=== PATIENT | female | born 1970 | race Two or more races ===

== ENCOUNTER 2023-03-17 11:54 | Inpatient (IN) | payer OTHER ==
[~2023-03-17] VITALS: Ht 167.6 cm; Wt 77.6 kg
[2023-03-17 14:14] LABS: HEMATOCRIT 30.2 % (36.0-45.00); MEAN CELL VOLUME 85.1 fL (80.00-100.00); MEAN CORPUSCULAR HEMOGLOBIN 28.3 pg (27.00-32.0); MEAN CORPUSCULAR HGB CONC 33.3 g/dl (32.0-36.0); PLATELET COUNT 464 K/uL (150-450); RED BLOOD COUNT 3.54 M/uL (4.00-6.00); RED CELL DISTRIBUTION WIDTH 14.3 % (11.5-14.5)
[2023-03-17 14:29] LABS: ALBUMIN 1.7 gm/dL (3.4-5.0); BILIRUBIN TOTAL 0.51 mg/dL (0.3-1.2); CALCIUM 8.4 mg/dL (8.5-10.1); CREATININE SERUM 0.89 mg/dL (0.55-1.02); GFR 67.13; GLOBULINA 5.3 G/DL (2.4-3.5); POTASSIUM 3.47 mEq/L (3.5-5.1)
[2023-03-17 14:29] LABS: ABG PH 7.473 (7.35-7.45); ABG PO2 90.3 mmHg (80-100); ABG pCO2 27.6 mmHg (35-45); BASE EXCESS -2.3 mmol/l; BICARBONATE 19.8 mmol/l (23-25); SaO2 97.5 %; Tco2 20.6 mmol/l
[2023-03-17 14:30] LABS: allen test SATISFACTORY; o2 21 %; puncture site RADIAL RIGHT
[2023-03-17 15:23] LABS: INR 1.21; PARTIAL THROMBOPLASTIN TIME 31.6 SECONDS (22.0-34.0); PROTHROMBIN TIME 12.5 SECONDS (9.0-11.5)
[2023-03-18 08:05] LABS: HEMATOCRIT 27.8 % (36.0-45.00); HEMOGLOBIN 9.2 g/dL (12.0-15.00); MEAN CELL VOLUME 87.1 fL (80.00-100.00); MEAN CORPUSCULAR HEMOGLOBIN 28.8 pg (27.00-32.0); PLATELET COUNT 384 K/uL (150-450); RED BLOOD COUNT 3.19 M/uL (4.00-6.00); RED CELL DISTRIBUTION WIDTH 14.5 % (11.5-14.5)
[2023-03-18 08:51] LABS: ALBUMIN 1.4 gm/dL (3.4-5.0); BILIRUBIN TOTAL 0.63 mg/dL (0.3-1.2); CALCIUM 7.6 mg/dL (8.5-10.1); CREATININE SERUM 0.89 mg/dL (0.55-1.02); GFR 67.13; GLOBULINA 3.9 G/DL (2.4-3.5); POTASSIUM 4.42 mEq/L (3.5-5.1); TOTAL PROTEIN 5.3 gm/dL (6.4-8.2)
[2023-03-18 17:59] LABS: URINE APPEARANCE Cloudy; URINE BILIRRUBIN Negative (NEGATIVE); URINE BLOOD Trace; URINE COLOR Yellow; URINE GLUCOSE Negative (NEGATIVE); URINE LEUKOCYTE Trace; URINE NITRATE Negative; URINE PROTEIN 30 (NEGATIVE)
[2023-03-18 18:00] LABS: URINE BACTERIA 284.7 uL (0.0-1933); URINE WBC 21.9 uL (0.0-23.2)
[2023-03-20 06:45] LABS: HEMATOCRIT 29.9 % (36.0-45.00); MEAN CELL VOLUME 86.3 fL (80.00-100.00); MEAN CORPUSCULAR HEMOGLOBIN 28.9 pg (27.00-32.0); MEAN CORPUSCULAR HGB CONC 33.5 g/dl (32.0-36.0); PLATELET COUNT 507 K/uL (150-450); RED BLOOD COUNT 3.47 M/uL (4.00-6.00); RED CELL DISTRIBUTION WIDTH 14.3 % (11.5-14.5)
[2023-03-20 07:00] LABS: ERYTHROCYTE SEDIMENTATION RATE > 130 mm/hr
[2023-03-20 07:12] LABS: ALBUMIN 1.6 gm/dL (3.4-5.0); BILIRUBIN TOTAL 0.36 mg/dL (0.3-1.2); CREATININE SERUM 0.8 mg/dL (0.55-1.02); GFR 75.92; GLOBULINA 4.7 G/DL (2.4-3.5); POTASSIUM 4.13 mEq/L (3.5-5.1); TOTAL PROTEIN 6.3 gm/dL (6.4-8.2)
[2023-03-20 07:13] LABS: C-REACTIVE PROTEIN 26.6 MG/DL (0.00-0.29)
[2023-03-21 11:13] LABS: ob NEGATIVE (NEGATIVE)
[2023-03-21 12:43] LABS: FECAL LEUKOCYTES NEGATIVE (NEGATIVE)
[2023-03-23 08:45] LABS: HEMATOCRIT 28.7 % (36.0-45.00); MEAN CELL VOLUME 86.9 fL (80.00-100.00); MEAN CORPUSCULAR HGB CONC 33.1 g/dl (32.0-36.0); PLATELET COUNT 495 K/uL (150-450); RED CELL DISTRIBUTION WIDTH 14.1 % (11.5-14.5)
[2023-03-23 09:00] LABS: ALBUMIN 1.7 gm/dL (3.4-5.0); BILIRUBIN TOTAL 0.38 mg/dL (0.3-1.2); GFR 58.69; GLOBULINA 3.3 G/DL (2.4-3.5); POTASSIUM 3.82 mEq/L (3.5-5.1)
[2023-03-23 09:08] LABS: HEMOGLOBIN 9.5 g/dL (12.0-15.00); MEAN CORPUSCULAR HEMOGLOBIN 28.7 pg (27.00-32.0)
[2023-03-23 09:16] LABS: C-REACTIVE PROTEIN 3.64 MG/DL (0.00-0.29)
[2023-03-23 10:43] LABS: ERYTHROCYTE SEDIMENTATION RATE 49 mm/hr
[2023-03-24 07:42] LABS: HEMATOCRIT 31.3 % (36.0-45.00); HEMOGLOBIN 10.3 g/dL (12.0-15.00); MEAN CELL VOLUME 87.2 fL (80.00-100.00); MEAN CORPUSCULAR HEMOGLOBIN 28.6 pg (27.00-32.0); MEAN CORPUSCULAR HGB CONC 32.9 g/dl (32.0-36.0); PLATELET COUNT 578 K/uL (150-450); RED BLOOD COUNT 3.59 M/uL (4.00-6.00); RED CELL DISTRIBUTION WIDTH 14.6 % (11.5-14.5)
[2023-03-24 08:10] LABS: CALCIUM 8.1 mg/dL (8.5-10.1); CREATININE SERUM 0.81 mg/dL (0.55-1.02); GFR 74.84; MAGNESIUM 1.9 mg/dL (1.8-2.4); PHOSPHOROUS 3.6 mg/dL (2.5-4.9); POTASSIUM 4.36 mEq/L (3.5-5.1)
[2023-03-27 07:31] LABS: HEMATOCRIT 26.4 % (36.0-45.00); MEAN CELL VOLUME 88.2 fL (80.00-100.00); MEAN CORPUSCULAR HGB CONC 31.5 g/dl (32.0-36.0); PLATELET COUNT 477 K/uL (150-450); RED BLOOD COUNT 2.99 M/uL (4.00-6.00); RED CELL DISTRIBUTION WIDTH 14.4 % (11.5-14.5)
[2023-03-27 07:34] LABS: MEAN CORPUSCULAR HEMOGLOBIN 27.7 pg (27.00-32.0)
[2023-03-27 07:35] LABS: HEMOGLOBIN 8.3 g/dL (12.0-15.00)
[2023-03-27 07:47] LABS: ERYTHROCYTE SEDIMENTATION RATE 27 mm/hr
[2023-03-27 08:15] LABS: ALBUMIN 1.8 gm/dL (3.4-5.0); BILIRUBIN TOTAL 0.24 mg/dL (0.3-1.2); CALCIUM 7.7 mg/dL (8.5-10.1); CREATININE SERUM 0.74 mg/dL (0.55-1.02); GFR 83.07; POTASSIUM 3.37 mEq/L (3.5-5.1); TOTAL PROTEIN 4.8 gm/dL (6.4-8.2)
[2023-03-27 08:25] LABS: C-REACTIVE PROTEIN 2.26 MG/DL (0.00-0.29)
[2023-03-27 15:27] LABS: HEMATOCRIT 26.5 % (36.0-45.00); HEMOGLOBIN 8.7 g/dL (12.0-15.00); MEAN CELL VOLUME 87.3 fL (80.00-100.00); MEAN CORPUSCULAR HEMOGLOBIN 28.7 pg (27.00-32.0); MEAN CORPUSCULAR HGB CONC 32.8 g/dl (32.0-36.0); PLATELET COUNT 480 K/uL (150-450); RED BLOOD COUNT 3.03 M/uL (4.00-6.00); RED CELL DISTRIBUTION WIDTH 14.4 % (11.5-14.5)
[2023-03-30 12:34] LABS: HEMATOCRIT 29.3 % (36.0-45.00); MEAN CELL VOLUME 86.3 fL (80.00-100.00); MEAN CORPUSCULAR HEMOGLOBIN 29.6 pg (27.00-32.0); MEAN CORPUSCULAR HGB CONC 34.2 g/dl (32.0-36.0); PLATELET COUNT 361 K/uL (150-450); RED BLOOD COUNT 3.39 M/uL (4.00-6.00); RED CELL DISTRIBUTION WIDTH 16.2 % (11.5-14.5)
[2023-03-30 12:59] LABS: ERYTHROCYTE SEDIMENTATION RATE 23 mm/hr
[2023-03-30 13:00] LABS: ALBUMIN 1.8 gm/dL (3.4-5.0); BILIRUBIN TOTAL 0.32 mg/dL (0.3-1.2); CALCIUM 7.5 mg/dL (8.5-10.1); CREATININE SERUM 0.72 mg/dL (0.55-1.02); GFR 85.74; GLOBULINA 3.4 G/DL (2.4-3.5); TOTAL PROTEIN 5.2 gm/dL (6.4-8.2)
[2023-03-30 14:10] LABS: C-REACTIVE PROTEIN 13.6 MG/DL (0.00-0.29); POTASSIUM 2.72 mEq/L (3.5-5.1)
[2023-03-31 14:54] LABS: HEMATOCRIT 30.5 % (36.0-45.00); HEMOGLOBIN 10.4 g/dL (12.0-15.00); MEAN CELL VOLUME 86.6 fL (80.00-100.00); MEAN CORPUSCULAR HEMOGLOBIN 29.5 pg (27.00-32.0); MEAN CORPUSCULAR HGB CONC 34.1 g/dl (32.0-36.0); PLATELET COUNT 343 K/uL (150-450); RED BLOOD COUNT 3.53 M/uL (4.00-6.00); RED CELL DISTRIBUTION WIDTH 16.5 % (11.5-14.5)
[2023-03-31 15:40] LABS: CALCIUM 7.7 mg/dL (8.5-10.1); CREATININE SERUM 0.75 mg/dL (0.55-1.02); GFR 81.79
[2023-03-31 15:52] LABS: POTASSIUM 2.89 mEq/L (3.5-5.1)
[2023-04-01 13:16] LABS: URINE APPEARANCE Clear; URINE BILIRRUBIN Negative (NEGATIVE); URINE BLOOD Negative; URINE COLOR Yellow; URINE GLUCOSE Negative (NEGATIVE); URINE LEUKOCYTE Negative; URINE NITRATE Negative; URINE PROTEIN Negative (NEGATIVE); URINE UROBILINOGEN 0.2 E.U./dl
[2023-04-01 13:20] LABS: URINE EPITHELIAL CELLS 6.1 uL (0.0-38.8); URINE WBC 2.4 uL (0.0-23.2)
[2023-04-01 13:24] LABS: URINE BACTERIA 3.7 uL (0.0-1933)
[2023-04-03 06:19] LABS: HEMATOCRIT 27.8 % (36.0-45.00); HEMOGLOBIN 9.5 g/dL (12.0-15.00); MEAN CELL VOLUME 86.5 fL (80.00-100.00); MEAN CORPUSCULAR HEMOGLOBIN 29.4 pg (27.00-32.0); PLATELET COUNT 246 K/uL (150-450); RED BLOOD COUNT 3.21 M/uL (4.00-6.00); RED CELL DISTRIBUTION WIDTH 15.9 % (11.5-14.5)
[2023-04-03 06:46] LABS: ALBUMIN 1.7 gm/dL (3.4-5.0); BILIRUBIN TOTAL 0.32 mg/dL (0.3-1.2); CALCIUM 7.4 mg/dL (8.5-10.1); CREATININE SERUM 0.86 mg/dL (0.55-1.02); GFR 69.84; GLOBULINA 3.4 G/DL (2.4-3.5); TOTAL PROTEIN 5.1 gm/dL (6.4-8.2)
[2023-04-03 07:28] LABS: ERYTHROCYTE SEDIMENTATION RATE 43 mm/hr
[2023-04-03 07:57] LABS: C-REACTIVE PROTEIN 12.7 MG/DL (0.00-0.29)
[2023-04-03 07:58] LABS: POTASSIUM 2.74 mEq/L (3.5-5.1)
[2023-04-05 08:15] LABS: ALBUMIN 1.9 gm/dL (3.4-5.0); BILIRUBIN TOTAL 0.41 mg/dL (0.3-1.2); CALCIUM 7.4 mg/dL (8.5-10.1); CREATININE SERUM 0.74 mg/dL (0.55-1.02); GFR 83.07; GLOBULINA 3.8 G/DL (2.4-3.5); TOTAL PROTEIN 5.7 gm/dL (6.4-8.2)
[2023-04-05 08:29] LABS: HEMATOCRIT 30.1 % (36.0-45.00); HEMOGLOBIN 9.9 g/dL (12.0-15.00); MEAN CELL VOLUME 87.1 fL (80.00-100.00); MEAN CORPUSCULAR HEMOGLOBIN 28.8 pg (27.00-32.0); MEAN CORPUSCULAR HGB CONC 33.1 g/dl (32.0-36.0); PLATELET COUNT 251 K/uL (150-450); RED BLOOD COUNT 3.45 M/uL (4.00-6.00)
[2023-04-05 09:45] LABS: C-REACTIVE PROTEIN 13.2 MG/DL (0.00-0.29); POTASSIUM 2.97 mEq/L (3.5-5.1)
[2023-04-05 09:55] LABS: ERYTHROCYTE SEDIMENTATION RATE 82 mm/hr
[2023-04-07 06:38] LABS: HEMATOCRIT 29.3 % (36.0-45.00); HEMOGLOBIN 9.7 g/dL (12.0-15.00); MEAN CELL VOLUME 86.9 fL (80.00-100.00); MEAN CORPUSCULAR HEMOGLOBIN 28.8 pg (27.00-32.0); MEAN CORPUSCULAR HGB CONC 33.1 g/dl (32.0-36.0); PLATELET COUNT 224 K/uL (150-450); RED BLOOD COUNT 3.37 M/uL (4.00-6.00); RED CELL DISTRIBUTION WIDTH 15.8 % (11.5-14.5)
[2023-04-07 07:35] LABS: ALBUMIN 1.8 gm/dL (3.4-5.0); BILIRUBIN TOTAL 0.32 mg/dL (0.3-1.2); CALCIUM 7.4 mg/dL (8.5-10.1); CREATININE SERUM 0.64 mg/dL (0.55-1.02); GFR 98.22; GLOBULINA 3.7 G/DL (2.4-3.5); TOTAL PROTEIN 5.5 gm/dL (6.4-8.2)
[2023-04-07 08:37] LABS: POTASSIUM 2.74 mEq/L (3.5-5.1)
[2023-04-12 06:57] LABS: HEMATOCRIT 28.9 % (36.0-45.00); HEMOGLOBIN 9.6 g/dL (12.0-15.00); MEAN CELL VOLUME 86.6 fL (80.00-100.00); MEAN CORPUSCULAR HEMOGLOBIN 28.8 pg (27.00-32.0); MEAN CORPUSCULAR HGB CONC 33.2 g/dl (32.0-36.0); PLATELET COUNT 228 K/uL (150-450); RED BLOOD COUNT 3.34 M/uL (4.00-6.00)
[2023-04-12 07:57] LABS: ALBUMIN 1.8 gm/dL (3.4-5.0); BILIRUBIN TOTAL 0.33 mg/dL (0.3-1.2); CALCIUM 7.4 mg/dL (8.5-10.1); CREATININE SERUM 0.64 mg/dL (0.55-1.02); GFR 98.22; GLOBULINA 3.5 G/DL (2.4-3.5); POTASSIUM 3.03 mEq/L (3.5-5.1); TOTAL PROTEIN 5.3 gm/dL (6.4-8.2)
[2023-04-14 08:42] LABS: BILIRUBIN TOTAL 0.32 mg/dL (0.3-1.2); CALCIUM 7.2 mg/dL (8.5-10.1); CREATININE SERUM 0.56 mg/dL (0.55-1.02); GFR 114.59; GLOBULINA 3.5 G/DL (2.4-3.5); POTASSIUM 3.58 mEq/L (3.5-5.1); TOTAL PROTEIN 5.5 gm/dL (6.4-8.2)
[2023-04-25 12:03] LABS: HEMATOCRIT 34.2 % (36.0-45.00); HEMOGLOBIN 10.9 g/dL (12.0-15.00); MEAN CORPUSCULAR HEMOGLOBIN 28.8 pg (27.00-32.0); PLATELET COUNT 304 K/uL (150-450); RED CELL DISTRIBUTION WIDTH 17.8 % (11.5-14.5)
[2023-04-25 12:25] LABS: INR 1.12; PARTIAL THROMBOPLASTIN TIME 30.2 SECONDS (22.0-34.0)
[2023-04-25 12:29] LABS: PROTHROMBIN TIME 11.7 SECONDS (9.0-11.5)
[2023-04-25 12:33] LABS: ALBUMIN 2.8 gm/dL (3.4-5.0); BILIRUBIN TOTAL 0.55 mg/dL (0.3-1.2); CALCIUM 9.1 mg/dL (8.5-10.1); CREATININE SERUM 0.59 mg/dL (0.55-1.02); GFR 107.89; GLOBULINA 4.2 G/DL (2.4-3.5); POTASSIUM 3.54 mEq/L (3.5-5.1)
[2023-04-27 07:46] LABS: HEMATOCRIT 29.5 % (36.0-45.00); HEMOGLOBIN 10.2 g/dL (12.0-15.00); MEAN CELL VOLUME 86.9 fL (80.00-100.00); MEAN CORPUSCULAR HEMOGLOBIN 30.1 pg (27.00-32.0); MEAN CORPUSCULAR HGB CONC 34.7 g/dl (32.0-36.0); PLATELET COUNT 250 K/uL (150-450); RED CELL DISTRIBUTION WIDTH 17.2 % (11.5-14.5)
[2023-04-27 08:25] LABS: CALCIUM 8.5 mg/dL (8.5-10.1); CREATININE SERUM 0.62 mg/dL (0.55-1.02); GFR 101.89; MAGNESIUM 1.7 mg/dL (1.8-2.4); PHOSPHOROUS 3.5 mg/dL (2.5-4.9); POTASSIUM 3.81 mEq/L (3.5-5.1)
[2023-05-01] MEDS ORDERED: FOLIC ACID1 MG PO (14:07)
[2023-05-01] MEDS ORDERED: Neurin-Sl Tablet Sl SL (14:07)
[2023-05-01] MEDS ORDERED: VITAMIN D3125 MC2 PO (14:07)
[2023-05-01] MEDS ORDERED: INTEGRA PLUS C1 EACH PO (14:07)
[2023-05-01] MEDS ORDERED: PYRIDOXINE HCL100 MG PO (14:07)
== END 2023-05-01 16:24 | disposition home or self-care (01) | DRG 558 ==
LOC: ER 11:54 → MEDJ 19:18 → O/R 04-16 16:55 → MEDJ 04-16 16:56
PROVIDERS: General Practice; Internal Medicine; Internal Medicine Geriatric Medicine; Internal Medicine Infectious Disease; Specialist; ADMIT Internal Medicine; ATTEND Internal Medicine
PROC: B44FZZZ Ultrasonography of Right Lower Extremity Arteries (ICD-10-PCS; principal; 2023-03-17)
PROC: B54BZZZ Ultrasonography of Right Lower Extremity Veins (ICD-10-PCS; 2023-03-17)
PROC: BQ2RZZZ Computerized Tomography (CT Scan) of Right Lower Extremity (ICD-10-PCS; 2023-03-17)
PROC: BR39YZZ Magnetic Resonance Imaging (MRI) of Lumbar Spine using Other Contrast (ICD-10-PCS; 2023-03-21)
PROC: BR39ZZZ Magnetic Resonance Imaging (MRI) of Lumbar Spine (ICD-10-PCS; 2023-03-21)
PROC: BQ3DZZZ Magnetic Resonance Imaging (MRI) of Right Lower Leg (ICD-10-PCS; 2023-03-21)
PROC: BQ3DYZZ Magnetic Resonance Imaging (MRI) of Right Lower Leg using Other Contrast (ICD-10-PCS; 2023-03-21)
PROC: B54BZZZ Ultrasonography of Right Lower Extremity Veins (ICD-10-PCS; 2023-03-23)
PROC: 3E0F7GC Introduction of Other Therapeutic Substance into Respiratory Tract, Via Natural or Artificial Opening (ICD-10-PCS; 2023-03-28)
PROC: 30233N1 Transfusion of Nonautologous Red Blood Cells into Peripheral Vein, Percutaneous Approach (ICD-10-PCS; 2023-03-29)
PROC: BQ3 Imaging, Non-Axial Lower Bones, Magnetic Resonance Imaging (MRI) (ICD-10-PCS; 2023-04-01)
PROC: 0J9 Subcutaneous Tissue and Fascia, Drainage (ICD-10-PCS; 2023-04-02)
PROC: 02HV33Z Insertion of Infusion Device into Superior Vena Cava, Percutaneous Approach (ICD-10-PCS; 2023-04-04)
PROC: BQ3DZZZ Magnetic Resonance Imaging (MRI) of Right Lower Leg (ICD-10-PCS; 2023-04-08)
PROC: BQ3DYZZ Magnetic Resonance Imaging (MRI) of Right Lower Leg using Other Contrast (ICD-10-PCS; 2023-04-08)
PROC: 0J9 Subcutaneous Tissue and Fascia, Drainage (ICD-10-PCS; 2023-04-09)
PROC: BQ3DZZZ Magnetic Resonance Imaging (MRI) of Right Lower Leg (ICD-10-PCS; 2023-04-15)
PROC: BQ3DYZZ Magnetic Resonance Imaging (MRI) of Right Lower Leg using Other Contrast (ICD-10-PCS; 2023-04-15)
PROC: BL41ZZZ Ultrasonography of Lower Extremity Connective Tissue (ICD-10-PCS; 2023-04-20)
PROC: 0J9N3ZZ Drainage of Right Lower Leg Subcutaneous Tissue and Fascia, Percutaneous Approach (ICD-10-PCS; 2023-04-25)
DX: M60.051 Infective myositis, right thigh (principal); L03.115 Cellulitis of right lower limb; J45.21 Mild intermittent asthma with (acute) exacerbation; J90 Pleural effusion, not elsewhere classified; A04.72 Enterocolitis due to Clostridium difficile, not specified as recurrent; B37.49 Other urogenital candidiasis; M79.81 Nontraumatic hematoma of soft tissue; L29.3 Anogenital pruritus, unspecified; D64.89 Other specified anemias; M54.59 Other low back pain; R26.89 Other abnormalities of gait and mobility; E86.0 Dehydration; E87.6 Hypokalemia; D72.828 Other elevated white blood cell count; R60.0 Localized edema
CPT/HCPCS: 72149; 73722; 73725